=== PATIENT | male | born 1955 | race Caucasian/White ===

== ENCOUNTER 2024-08-26 06:05 | Day surgery (SDC) | payer OTHER ==
[2024-08-26] VITALS (12 sets, daily range): BP systolic 94–126; BP diastolic 64–87
[~2024-08-26] VITALS: Ht 182.9 cm; Wt 67.0 kg
[~2024-08-26 06:05] MED LIST: AMIT50 PO; AMLO5 PO; ASPI81CH PO; CARV6.25 PO; LOSA50 PO; Lovastatin20 MG PO; Naprosyn500 MG PO; VALS80 PO
[2024-08-26] MEDS ORDERED: Benzocaine Oral Spray 0.5ML UD ONE (06:38)
[2024-08-26] MEDS ORDERED: NS 1,000 ML IV ONE (06:54)
[2024-08-26] MEDS ORDERED: propofoL 20 ML IV ONE (07:17)
--- NOTE | 2024-08-26 07:50 | NUR ---
ASSUMED CARE FROM ANESTHESIA. PT AWAKE AND VERBALIZING WELL.
[2024-08-26] MEDS ORDERED: Glycopyrrolate 0.2 MG/ML 5ML VIAL ONE (08:02)
--- NOTE | 2024-08-26 08:13 | NUR ---
PT VERBALZED UNDERSTANDING OF WRITTEN AND VERBAL D/C INST. IV REMOVED. PT AMB IN RM /S DIFFICULTY. PT WILL BE TAKEN OUT OF THE HRT CENTER VIA W/C.
== END 2024-08-26 23:00 | disposition home or self-care (01) ==
LOC: MHTC 06:05
DX: I34.0 Nonrheumatic mitral (valve) insufficiency (principal); I34.1 Nonrheumatic mitral (valve) prolapse; I77.810 Thoracic aortic ectasia; I25.10 Atherosclerotic heart disease of native coronary artery without angina pectoris; I47.10 Supraventricular tachycardia, unspecified; E78.5 Hyperlipidemia, unspecified; I10 Essential (primary) hypertension; F17.210 Nicotine dependence, cigarettes, uncomplicated; I49.3 Ventricular premature depolarization; M19.90 Unspecified osteoarthritis, unspecified site; Z79.82 Long term (current) use of aspirin; Z79.899 Other long term (current) drug therapy
CPT/HCPCS: 93312; 93325; A9270; J2704; J7030